=== PATIENT | male | born 1960 | race Caucasian/White ===

== ENCOUNTER → 2016-10-25 | Outpatient (CLI) | payer OTHER ==
[~2016-10-25] MED LIST: ALBUTEROL17 GM INH; ASPIRIN PO; LEVAQUIN PO; RONDEC-DM ORAL30 ML PO
--- NOTE | ~2016-10-25 | CT138 ---
[facility] A Service of [facility] RADIOLOGY TEXT RESULTS PATIENT: DELIO LIM LOCATION: [facility] : 56 UNIT #: [id number] AGE: [address]: Thelma Hawley MD SEX: M ORDER DR: [id number] [facility] [address]. [place], [place] [address] [id number] O MR#: [id number] Acc #: [id number] NAME: DELIO ILM : 1960 SEX: M STUDY DATE/TIME: 10/25/2016 9:08 UNIT: [facility] ROOM: STUDY DESCRIPTION: CT Lung screening initial Attending Physician: Thelma Hawley M.D. Ordering Physician: Thelma Hawley M.D. Primary Care Physician: Thelma Hawley M.D. MEDICAL IMAGING REPORT This report is preliminary unless electronic signature is present EXAM CT lung cancer screening. DATE OF EXAM 10/25/2016 INDICATIONS Lung cancer screening. 30 pack year smoking history. PROCEDURE Low-dose unenhanced CT of the chest performed per lung cancer screening protocol. CT-DI is 2.95 mGy, total DLP 136 mGy-cm. COMPARISON None. TECHNIQUE NOTE: This CT exam was performed with one or more of the following radiation dose reduction techniques: automatic exposure control, adjustment of mA and/or kV according to patient size, and iterative reconstruction. FINDINGS Severe emphysema. No suspicious pulmonary nodule. Small amount of scarring at the left lung base. Filling defect in the proximal posterior left lower lobe bronchus. There is no pleural fluid or pneumothorax. No adenopathy. No acute findings in the included upper abdomen. No aggressive appearing bone lesion. IMPRESSION 1. Severe emphysema. 2. No suspicious pulmonary nodule. 3. Opacity in the left. The posterior left lower lobe bronchus has the [facility] A Service [facility] RADIOLOGY TEXT RESULTS PATIENT: DELIO LIM LOCATION: [facility] : 56 UNIT #: [id number] AGE: [address]: Thelma Hawley MD SEX: M ORDER DR: appearance of secretions or focal mucous plugging. Correlate with any symptoms. It does not have typical appearance expected for a true endobronchial lesion. 4. LungRADS category 2, benign findings. Recommend patient continue with yearly screening. Follow up of the left lower lobe bronchial findings could be performed in a shorter interval if desired clinically. Dictated by... Luther Braun M.D. THIS IS AN ELECTRONICALLY VERIFIED REPORT Luther Braun M.D. at 10/28/2016 7:21 AM CHEMO/arturo TD: 10/25/2016 18:03 JOB #: [id number] MEDICAL IMAGING REPORT COPY
== END | disposition home or self-care (01) ==
LOC: CCAT 08:51
DX: F17.218 Nicotine dependence, cigarettes, with other nicotine-induced disorders (principal); J43.9 Emphysema, unspecified
CPT/HCPCS: G0297